=== PATIENT | male | born 2005 | race Caucasian/White ===

== ENCOUNTER 2023-09-26 10:24 | Emergency (ER) | payer SELFPAY ==
[~2023-09-26] VITALS: Ht 172.7 cm; Wt 59.0 kg
[~2023-09-26 10:24] MED LIST: Crutch1 EACH MISC
[2023-09-26 10:39] VITALS: BP 119/82
== END 2023-09-26 12:33 | disposition home or self-care (01) ==
LOC: ER 10:24
DX: S61.211A Laceration without foreign body of left index finger without damage to nail, initial encounter (principal); W26.0XXA Contact with knife, initial encounter; Y93.89 Activity, other specified
CPT/HCPCS: 12001; 99282-25